=== PATIENT | male | born 2000 ===

== ENCOUNTER 2021-11-11 20:52 | Emergency (ER) | payer SELFPAY ==
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
[2021-11-11 23:06] LABS: Basophils # (Auto) 0.1 K/mm3 (0.0-0.1); Basophils % (Auto) 0.5 % (0.0-1.8); Eosinophils % (Auto) 0.2 % (0.0-4.3); Hematocrit 46.9 % (35.5-45.6); Hemoglobin 16.4 gm/dl (11.8-15.2); Lymphocytes # (Auto) 2.3 K/mm3 (1.2-5.4); Lymphocytes % (Auto) 20.3 % (13.4-35.0); Mean Corpuscular HGB Conc 35 % (32-34); Mean Corpuscular Volume 90 fl (84-94); Monocytes # (Auto) 0.8 K/mm3 (0.0-0.8); Monocytes % (Auto) 7.2 % (0.0-7.3); Platelet Count 269 K/mm3 (140-440); Red Blood Count 5.19 M/mm3 (3.65-5.03); Red Cell Distribution Width 12.9 % (13.2-15.2)
--- NOTE | 2021-11-11 23:13 | Cat Scan Report ---
CT HEAD WITHOUT CONTRAST INDICATION / CLINICAL INFORMATION: head injury r/o ich. TECHNIQUE: CT head was performed without administration of intravenous contrast. All CT scans at this location are performed using CT dose reduction for ALARA by means of automated exposure control. COMPARISON: None available. FINDINGS: CEREBRAL HEMISPHERES: There is no evidence of large territorial infarction or significant abnormality of coleman-white matter differentiation. Ventricles within normal limits. No midline shift. Basal ciste rns patent. HEMORRHAGE: None. CEREBELLUM / BRAINSTEM: No significant abnormality. ORBITS: Left globe enucleated. Right orbit unremarkable. SOFT TISSUES: No significant abnormality. SKULL: No significant abnormality. PARANASAL SINUSES / MASTOID AIR CELLS: Normal as visualized. ADDITIONAL FINDINGS: None. IMPRESSION: 1. No acute intracranial abnormality. Signer Name: Jairon Crocker II, MD Signed: 11/11/2021 11:08 PM Workstation Name: [id number]
[2021-11-11 23:20] LABS: Alanine Aminotransferase 18 units/L (7-56); Albumin 4.9 g/dL (3.9-5); BUN/Creatinine Ratio 6; Blood Urea Nitrogen 5 mg/dL (9-20); Calcium 9.9 mg/dL (8.4-10.2); Hemolysis Index 9
[2021-11-12 00:13] LABS: Color,Urine Yellow (Yellow)
[2021-11-12 00:14] LABS: Bilirubin,Urine Negative (Negative); Blood,Urine Negative (Negative); PH,Urine 7.5 (5.0-7.0); Protein,Urine <30 mg dL mg/dL (Negative)
[2021-11-12 00:15] LABS: Urobilinogen,Urine 0.2 mg/dL (<2.0)
[2021-11-12 00:19] LABS: Granular Casts,Urine 16 /LPF; Mucus,Urine 2+ /HPF; WBC,Urine < 1.0 /HPF (0.0-6.0)
[2021-11-12 00:23] LABS: Amphetamine Screen,Urine PRESUMPTIVE NEGATIVE; Benzodiazepines Screen,Urine PRESUMPTIVE POSITIVE; Cannabinoid Screen,Urine PRESUMPTIVE POSITIVE; Cocaine Screen,Urine PRESUMPTIVE NEGATIVE; Methadone Screen,Urine PRESUMPTIVE NEGATIVE; Opiate Screen,Urine PRESUMPTIVE POSITIVE
[2021-11-12 09:39] LABS: Hematocrit 47.3 % (35.5-45.6); Hemoglobin 15.9 gm/dl (11.8-15.2); Mean Corpuscular HGB Conc 34 % (32-34); Mean Corpuscular Volume 92 fl (84-94); Platelet Count 248 K/mm3 (140-440); Red Blood Count 5.16 M/mm3 (3.65-5.03); Red Cell Distribution Width 13.1 % (13.2-15.2)
--- NOTE | 2021-11-12 14:19 | Consultation ---
History of Present Illness - Reason for Consult Consult date: 11/11/21 Reason for consult: MHE - History of Present Psychiatric Illness HPI 21 year old male was seen today in the ER. Patient states that he was brought to the hospital because he had a seizure and [facility] " didn't handle seizure safely or professionally". Patient has a past Psychiatric dx of Bipolar,and Schizophrenia,substance abuse. Patient denies any SI/HI/AVH at this time. Psych will sign off at this time and rescind 1013. Patient can be discharged when medically cleared. PAST PSYCHIATRIC HISTORY: Diagnoses: Bipolar, Schizophrenia Suicide attempts or Self-harm behavior: Yes Prior psychiatric hospitalizations: Yes Substance Abuse history:Yes, cannabis Previous psychiatric medications tried: Yes Outpatient treatment: PAST MEDICAL HISTORY: Family Psychiatric History None reported or documented SOCIAL HISTORY Marital Status: Single Living Arrangements: With parents Employment Status: Unemployed Access to guns/weapons: Denies Education: Some College History of Abuse: Denies Legal History: REVIEW OF SYSTEMS Constitutional: Negative for weight loss ENT: Negative for stridor Respiratory: Negative for cough or hemoptysis All other systems reviewed and are negative MENTAL STATUS General Appearance and Behavior: age appropriate, good eye contact, cooperative with questioning and polite Cooperation: Cooperative Psychomotor Behavior: within normal limits Mood: ok Affect and affective range: Congruent with stated mood Thought Process: Fluent/Logical and Goal-directed Thought Content: Within reality Speech: Normal volume and Regular rate and rhythm Intellectual Functioning Average Suicidal Ideation: Denies SI Homicidal Ideation: Denies HI Impulse Control: intact Insight and Judgment: Poor Memory: Normal Attention: Normal Orientation: alert and oriented RECOMMENDATIONS MEDICAL: Per primary team DELIRIUM PRECAUTIONS: Please re-orient patient frequently, keep lights on during the day, and minimize benzodiazepines and opiates as these medications could worsen patient's confusion. FLEECE TIER: Defer to primary team DISPOSITION: Per primary team, no indication for acute inpatient psychiatric hospitalization at this time. LEGAL STATUS: DC 1013 FOLLOW-UP: Will sign off Medications and Allergies Allergies Allergy/AdvReac Type Severity Reaction Status Date / Time No Known Allergies Allergy Unverified 11/11/21 21:17 Mental Status Exam - Vital signs Last Vital Signs Temp 98.9 F 11/12/21 06:23 Pulse 56 L 11/12/21 06:23 Resp 20 11/12/21 06:23 BP 124/65 11/12/21 06:23 Pulse Ox 99 11/12/21 06:23 Results Result Diagrams: 11/12/21 08:41 11/11/21 22:44 Abnormal lab results 11/11/21 11/11/21 11/11/21 Range/Units 22:44 22:44 22:44 WBC 11.4 H (4.5-11.0) K/mm3 RBC 5.19 H (3.65-5.03) M/mm3 Hgb 16.4 H (11.8-15.2) gm/dl Hct 46.9 H (35.5-45.6) % MCHC 35 H (32-34) % RDW 12.9 L (13.2-15.2) % Seg Neutrophils % 71.8 H (40.0-70.0) % Seg Neutrophils # 8.2 H (1.8-7.7) K/mm3 BUN 5 L (9-20) mg/dL Urine pH (5.0-7.0) Salicylates < 0.3 L (2.8-20.0) mg/dL Acetaminophen (10.0-30.0) ug/mL 11/11/21 11/12/21 11/12/21 Range/Units 22:44 00:04 08:41 WBC (4.5-11.0) K/mm3 RBC 5.16 H (3.65-5.03) M/mm3 Hgb 15.9 H (11.8-15.2) gm/dl Hct 47.3 H (35.5-45.6) % MCHC (32-34) % RDW 13.1 L (13.2-15.2) % Seg Neutrophils % (40.0-70.0) % Seg Neutrophils # (1.8-7.7) K/mm3 BUN (9-20) mg/dL Urine pH 7.5 H (5.0-7.0) Salicylates (2.8-20.0) mg/dL Acetaminophen 5.0 L (10.0-30.0) ug/mL All other labs normal.
[2021-11-12] MEDS ORDERED: diphenhydrAMINE 50 MG/ML VIAL ONE (14:27)
[2021-11-12] MEDS ORDERED: HALOPERIDOL LACTATE 5 MG/1 ML INJ ONE (14:27)
[2021-11-12] MEDS ORDERED: diphenhydrAMINE 50 MG/ML VIAL IV ONE (14:28)
[2021-11-12] MEDS ORDERED: ZIPRASIDONE MESYLATE 20 MG VIAL IM ONE ×2 (14:28→14:29)
--- NOTE | 2021-11-12 22:23 | Emergency Department Report ---
Blank Doc - Documentation Documentation: 21-year-old male with history of pseudoseizures remains in the emergency depar tme on a 1013. There have been no acute issues during my shift, today. Patient is awaiting COVID-19 results for clearance and to be in inpatient psychiatric facility. Patient has been evaluated by mental health film developer.
[2021-11-13] MEDS ORDERED: ZIPRASIDONE MESYLATE 20 MG VIAL IM ONE ×2 (11:56)
--- NOTE | 2021-11-13 12:46 | Consultation ---
History of Present Illness - Reason for Consult Consult date: 11/13/21 Reason for consult: MHE - History of Present Psychiatric Illness HPI 21 year old male was seen today in the ER. Unable to communicate with patient at this time. Psych will follow patient at this time. Inpatient will be recommended at this time. PAST PSYCHIATRIC HISTORY: Diagnoses: Bipolar, Schizophrenia Suicide attempts or Self-harm behavior: Yes Prior psychiatric hospitalizations: Yes Substance Abuse history:Yes, cannabis Previous psychiatric medications tried: Yes Outpatient treatment: PAST MEDICAL HISTORY: Family Psychiatric History None reported or documented SOCIAL HISTORY Marital Status: Single Living Arrangements: With parents Employment Status: Unemployed Access to guns/weapons: Denies Education: Some College History of Abuse: Denies Legal History: REVIEW OF SYSTEMS Constitutional: Negative for weight loss ENT: Negative for stridor Respiratory: Negative for cough or hemoptysis All other systems reviewed and are negative MENTAL STATUS General Appearance and Behavior: age appropriate, good eye contact, cooperative with questioning and polite Cooperation: Cooperative Psychomotor Behavior: within normal limits Mood: ok Affect and affective range: Congruent with stated mood Thought Process: Fluent/Logical and Goal-directed Thought Content: Within reality Speech: Normal volume and Regular rate and rhythm Intellectual Functioning Average Suicidal Ideation: Denies SI Homicidal Ideation: Denies HI Impulse Control: intact Insight and Judgment: Poor Memory: Normal Attention: Normal Orientation: alert and oriented RECOMMENDATIONS MEDICAL: Per primary team DELIRIUM PRECAUTIONS: Please re-orient patient frequently, keep lights on during the day, and minimize benzodiazepines and opiates as these medications could worsen patient's confusion. MARKETING PROGRAMS SPECIALIST: Defer to primary team DISPOSITION: Per primary team, no indication for acute inpatient psychiatric hospitalization at this time. LEGAL STATUS: 1013 FOLLOW-UP: Will follow Medications and Allergies Allergies Allergy/AdvReac Type Severity Reaction Status Date / Time No Known Allergies Allergy Verified 11/12/21 14:32 Mental Status Exam - Vital signs Last Vital Signs Temp 98.6 F 11/13/21 08:00 Pulse 71 11/13/21 08:00 Resp 14 11/13/21 08:00 BP 121/79 11/13/21 08:00 Pulse Ox 96 11/13/21 08:00 Results Result Diagrams: 11/12/21 08:41 11/11/21 22:44 All other labs normal.
[2021-11-13] MEDS: traZODone 50 MG TAB PO SCH ×2 (20:28→23:13)
[2021-11-13] MEDS: ZIPRASIDONE MESYLATE 20 MG VIAL IM PRN (23:13)
--- NOTE | 2021-11-14 15:38 | Progress Note ---
Subjective - Reason for Consult Reason for consult: MHE - Chief Complaint Chief complaint: Patient seen today. Patient states that he is "doing better than yesterday" and that he is in "Mental Pain" and states tat he is hearing voices to " Hurt myself". Patient states he only hurts himself when he thinks he is doing something wrong like " Trying to break my bones and fingers". Patient waiting for placement at this time. PAST PSYCHIATRIC HISTORY: Diagnoses: Bipolar, Schizophrenia Suicide attempts or Self-harm behavior: Yes Prior psychiatric hospitalizations: Yes Substance Abuse history:Yes, cannabis Previous psychiatric medications tried: Yes Outpatient treatment: PAST MEDICAL HISTORY: Family Psychiatric History None reported or documented SOCIAL HISTORY Marital Status: Single Living Arrangements: With parents Employment Status: Unemployed Access to guns/weapons: Denies Education: Some College History of Abuse: Denies Legal History: REVIEW OF SYSTEMS Constitutional: Negative for weight loss ENT: Negative for stridor Respiratory: Negative for cough or hemoptysis All other systems reviewed and are negative MENTAL STATUS General Appearance and Behavior: age appropriate, good eye contact, cooperative with questioning and polite Cooperation: Cooperative Psychomotor Behavior: within normal limits Mood: ok Affect and affective range: Congruent with stated mood Thought Process: Fluent/Logical and Goal-directed Thought Content: Within reality Speech: Normal volume and Regular rate and rhythm Intellectual Functioning Average Suicidal Ideation: Denies SI Homicidal Ideation: Denies HI Impulse Control: intact Insight and Judgment: Poor Memory: Normal Attention: Normal Orientation: alert and oriented RECOMMENDATIONS MEDICAL: Per primary team DELIRIUM PRECAUTIONS: Please re-orient patient frequently, keep lights on during the day, and minimize benzodiazepines and opiates as these medications could worsen patient's confusion. OPTOMETRIST PRESIDENT/PRACTICE OWNER: Defer to primary team DISPOSITION: Per primary team, no indication for acute inpatient psychiatric hospitalization at this time. LEGAL STATUS: 1013 FOLLOW-UP: Will follow Medications and Allergies Mental Status Exam - Vital signs Last Vital Signs Temp 98.5 F 11/14/21 09:57 Pulse 80 11/14/21 09:57 Resp 18 11/14/21 09:57 BP 137/80 11/14/21 09:57 Pulse Ox 96 11/14/21 09:57
--- NOTE | 2021-11-14 15:53 | Event Note ---
Date: 11/14/21 Chart reviewed. Patient reassessed by me. Vital signs stable. Patient observed ambulating in psychiatric hold area, awaiting to have shower. He denies any complaints. He is calm and cooperative. We will continue to wait for final disposition by psychiatry consult
[2021-11-14] MEDS ORDERED: MIDAZOLAM 2 MG/2 ML INJ ONE (16:41)
[2021-11-14] MEDS ORDERED: ZIPRASIDONE MESYLATE 20 MG VIAL IM STA (16:57)
[2021-11-14] MEDS: ZIPRASIDONE MESYLATE 20 MG VIAL IM PRN (17:00)
[2021-11-14] MEDS ORDERED: HALOPERIDOL LACTATE 5 MG/1 ML INJ IM ONE (17:11)
[2021-11-14] MEDS ORDERED: diphenhydrAMINE 50 MG/ML VIAL IV ONE (17:11)
[2021-11-14] MEDS ORDERED: HALOPERIDOL LACTATE 5 MG/1 ML INJ ONE (17:11)
[2021-11-14] MEDS ORDERED: diphenhydrAMINE 50 MG/ML VIAL ONE (17:12)
[2021-11-15] MEDS: traZODone 50 MG TAB PO SCH ×2 (05:25→21:57)
--- NOTE | 2021-11-15 11:02 | Progress Note ---
Subjective - Reason for Consult Consult date: 11/15/21 Reason for consult: agitation - Chief Complaint Chief complaint: The patient was seen today. He is slow to respond at times, and have to be asked some questions more than once. The patient says he has suicidal thoughts at times. He says he has a lot of bad thoughts. He says "that's how I lost my left eye." He says "I pulled it out of the socket with my hand." He says he's been off his meds for about 6 months. The patient denies hallucinations. He says he takes depakote 500 twice daily and abilify daily. Will recommend acute psychiatric inpatient treatment and stabilize on medications. Due to impulsivity, past self harm history and being off medications, the patient is at an increased risk of self injury if discharged. REVIEW OF SYSTEMS Constitutional: Negative for weight loss ENT: Negative for stridor Respiratory: Negative for cough or hemoptysis All other systems reviewed and are negative MENTAL STATUS General Appearance and Behavior: age appropriate, good eye contact, slow to respond Cooperation: Cooperative Psychomotor Behavior: within normal limits Mood: ok Affect and affective range: Congruent with stated mood Thought Process: circumstantial Thought Content: illogical Speech: Normal volume and Regular rate and rhythm Suicidal Ideation: Yes Homicidal Ideation: Denies HI Impulse Control: poor Insight and Judgment: Poor Memory: Normal Attention: Normal Orientation: alert and oriented Assessment Bipolar Disorder RECOMMENDATIONS [address] 500mg po BID Start Abilify 20mg po daily MEDICAL: Per primary team DELIRIUM PRECAUTIONS: Please re-orient patient frequently, keep lights on during the day, and minimize benzodiazepines and opiates as these medications could worsen patient's confusion. MOLD ENGRAVER: Defer to primary team DISPOSITION: Recommend acute psychiatric inpatient treatment FOLLOW-UP: Will follow Case staffed with Dr. Flowers Mental Status Exam - Vital signs Last Vital Signs Temp 98.4 F 11/15/21 02:34 Pulse 91 H 11/15/21 02:34 Resp 18 11/15/21 02:34 BP 145/97 11/15/21 02:34 Pulse Ox 99 11/15/21 02:34
[2021-11-15] MEDS ORDERED: ARIPiprazole 10 MG TAB PO SCH (12:00)
[2021-11-15] MEDS: DIVALPROEX DR 500 MG TAB PO SCH ×2 (12:11→21:57)
--- NOTE | 2021-11-15 18:58 | Emergency Department Report ---
Blank Doc - Documentation Documentation: Chart review 21-year-old male currently on 1013 (order placed in [employer]). Tolerating p.o. medications. Vital signs normal
[2021-11-16] MEDS ORDERED: ZIPRASIDONE MESYLATE 20 MG VIAL IM ONE (09:06)
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
[2021-11-16] MEDS: ARIPiprazole 15 MG TAB PO SCH (11:27)
[2021-11-16] MEDS: DIVALPROEX DR 500 MG TAB PO SCH ×3 (11:27→22:14)
[2021-11-16] MEDS: clonazePAM 0.5 MG TAB PO SCH ×3 (11:28→22:14)
--- NOTE | 2021-11-16 14:50 | Event Note ---
Date: 11/16/21 The patient was evaluated in the emergency department for symptoms described in the history of present illness. He/she was evaluated in the context of the global COVID-19 pandemic, which necessitated consideration that the patient might be at risk for infection with the virus that causes COVID-19. Institutional protocols and algorithms that pertain to the evaluation of patients at risk for COVID-19 are in a state of rapid change based on information released by regulatory bodies including the CDC and federal and state organizations. These policies and algorithms were followed during the patient's care in the emergency department. Please note that these policies, procedures and recommendations changed on a rapid basis. Laboratory studies, vital signs, nursing documentation, ER documentation, and psychiatric documentation are reviewed and appreciated. Patient is awake and protecting his airway The patient is awake and ambulating and appears to be anxious The patient was deemed medically suitable for psychiatric disposition and placement during his initial ER evaluation. The patient continues to remain medically suitable for psychiatric placement and disposition. He is currently pending psychiatric placement. Vital Signs 11/11/21 11/12/21 11/12/21 22:35 00:05 03:49 Temperature 98.1 F 98.6 F Pulse Rate 67 72 Respiratory 20 20 Rate Blood Pressure 120/81 132/72 [Left] Blood Pressure [Right] O2 Sat by Pulse 100 96 99 Oximetry 11/12/21 11/13/21 11/13/21 06:23 08:00 12:32 Temperature 98.9 F 98.6 F Pulse Rate 56 L 71 Respiratory 20 14 Rate Blood Pressure 124/65 121/79 [Left] Blood Pressure [Right] O2 Sat by Pulse 99 96 97 Oximetry 11/13/21 11/13/21 11/13/21 18:18 20:46 21:13 Temperature 97.6 F 98.9 F Pulse Rate 95 H 99 H Respiratory 16 16 18 Rate Blood Pressure 142/87 139/79 [Left] Blood Pressure [Right] O2 Sat by Pulse 98 96 98 Oximetry 11/14/21 11/14/21 11/14/21 08:47 09:57 15:43 Temperature 98.5 F 98.9 F Pulse Rate 80 95 H Respiratory 18 18 Rate Blood Pressure 137/80 153/92 [Left] Blood Pressure [Right] O2 Sat by Pulse 98 96 99 Oximetry 07/28/22 07/29/22 07/29/22 21:37 02:34 14:22 Temperature 98.4 F 98.4 F 98.4 F Pulse Rate 109 H 91 H 78 Respiratory 18 18 18 Rate Blood Pressure [Left] Blood Pressure 134/97 145/97 151/97 [Right] O2 Sat by Pulse 100 99 100 Oximetry 11/15/21 11/15/21 11/16/21 19:21 22:11 11:21 Temperature 97.4 F L Pulse Rate 88 Respiratory 17 Rate Blood Pressure [Left] Blood Pressure 166/99 [Right] O2 Sat by Pulse 95 99 96 Oximetry 11/16/21 13:00 Temperature 98.1 F Pulse Rate 83 Respiratory 18 Rate Blood Pressure [Left] Blood Pressure 153/89 [Right] O2 Sat by Pulse 96 Oximetry Lab Results 11/11/21 11/11/21 11/11/21 Range/Units 22:44 22:44 22:44 WBC 11.4 H (4.5-11.0) K/mm3 RBC 5.19 H (3.65-5.03) M/mm3 Hgb 16.4 H (11.8-15.2) gm/dl Hct 46.9 H (35.5-45.6) % MCV 90 (84-94) fl MCH 32 (28-32) pg MCHC 35 H (32-34) % RDW 12.9 L (13.2-15.2) % Plt Count 269 (140-440) K/mm3 Lymph % (Auto) 20.3 (13.4-35.0) % [place] % (Auto) 7.2 (0.0-7.3) % Eos % (Auto) 0.2 (0.0-4.3) % Baso % (Auto) 0.5 (0.0-1.8) % Lymph # (Auto) 2.3 (1.2-5.4) K/mm3 [place] # (Auto) 0.8 (0.0-0.8) K/mm3 Eos # (Auto) 0.0 (0.0-0.4) K/mm3 Baso # (Auto) 0.1 (0.0-0.1) K/mm3 Seg Neutrophils % 71.8 H (40.0-70.0) % Seg Neutrophils # 8.2 H (1.8-7.7) K/mm3 Sodium 141 (137-145) mmol/L Potassium 4.0 (3.6-5.0) mmol/L Chloride 102.1 (98-107) mmol/L Carbon Dioxide 24 (22-30) mmol/L Anion Gap 19 mmol/L BUN 5 L (9-20) mg/dL Creatinine 0.8 (0.8-1.3) mg/dL Estimated GFR > 60 ml/min BUN/Creatinine Ratio 6 % Glucose 94 (75-100) mg/dL Calcium 9.9 (8.4-10.2) mg/dL Total Bilirubin 1.10 (0.1-1.2) mg/dL AST 28 (5-40) units/L ALT 18 (7-56) units/L Alkaline Phosphatase 93 (35-129) units/L Total Protein 7.9 (6.3-8.2) g/dL Albumin 4.9 (3.9-5) g/dL Albumin/Globulin Ratio 1.6 % Urine Color (Yellow) Urine Turbidity (Clear) Urine pH (5.0-7.0) Ur Specific [place] (1.003-1.030) Urine Protein (Negative) mg/dL Urine Glucose (UA) (Negative) mg/dL Urine Ketones (Negative) mg/dL Urine Blood (Negative) Urine Nitrite (Negative) Urine Bilirubin (Negative) Urine Urobilinogen (<2.0) mg/dL Ur Leukocyte Esterase (Negative) Urine WBC (Auto) (0.0-6.0) /HPF Urine RBC (Auto) (0.0-6.0) /HPF U Epithel Cells (Auto) (0-13.0) /HPF Granular Casts /LPF Urine Mucus /HPF Salicylates < 0.3 L (2.8-20.0) mg/dL Urine Opiates Screen Urine Methadone Screen Acetaminophen (10.0-30.0) ug/mL Ur Barbiturates Screen Ur Phencyclidine Scrn Ur Amphetamines Screen U Benzodiazepines Scrn Urine Cocaine Screen U Marijuana (THC) Screen Drugs of Abuse Note SARS-CoV-2 (PCR) (Negative) 11/11/21 11/12/21 11/12/21 Range/Units 22:44 00:04 00:04 WBC (4.5-11.0) K/mm3 RBC (3.65-5.03) M/mm3 Hgb (11.8-15.2) gm/dl Hct (35.5-45.6) % MCV (84-94) fl MCH (28-32) pg MCHC (32-34) % RDW (13.2-15.2) % Plt Count (140-440) K/mm3 Lymph % (Auto) (13.4-35.0) % [place] % (Auto) (0.0-7.3) % Eos % (Auto) (0.0-4.3) % Baso % (Auto) (0.0-1.8) % Lymph # (Auto) (1.2-5.4) K/mm3 [place] # (Auto) (0.0-0.8) K/mm3 Eos # (Auto) (0.0-0.4) K/mm3 Baso # (Auto) (0.0-0.1) K/mm3 Seg Neutrophils % (40.0-70.0) % Seg Neutrophils # (1.8-7.7) K/mm3 Sodium (137-145) mmol/L Potassium (3.6-5.0) mmol/L Chloride (98-107) mmol/L Carbon Dioxide (22-30) mmol/L Anion Gap mmol/L BUN (9-20) mg/dL Creatinine (0.8-1.3) mg/dL Estimated GFR ml/min BUN/Creatinine Ratio % Glucose (75-100) mg/dL Calcium (8.4-10.2) mg/dL Total Bilirubin (0.1-1.2) mg/dL AST (5-40) units/L ALT (7-56) units/L Alkaline Phosphatase (35-129) units/L Total Protein (6.3-8.2) g/dL Albumin (3.9-5) g/dL Albumin/Globulin Ratio % Urine Color Yellow (Yellow) Urine Turbidity Clear (Clear) Urine pH 7.5 H (5.0-7.0) Ur Specific [place] 1.015 (1.003-1.030) Urine Protein <30 mg dl (Negative) mg/dL Urine Glucose (UA) Negative (Negative) mg/dL Urine Ketones 160 (Negative) mg/dL Urine Blood Negative (Negative) Urine Nitrite Negative (Negative) Urine Bilirubin Negative (Negative) Urine Urobilinogen 0.2 (<2.0) mg/dL Ur Leukocyte Esterase Negative (Negative) Urine WBC (Auto) < 1.0 (0.0-6.0) /HPF Urine RBC (Auto) 1.0 (0.0-6.0) /HPF U Epithel Cells (Auto) < 1.0 (0-13.0) /HPF Granular Casts 16 /LPF Urine Mucus 2+ /HPF Salicylates (2.8-20.0) mg/dL Urine Opiates Screen Presumptive positive Urine Methadone Screen Presumptive negative Acetaminophen 5.0 L (10.0-30.0) ug/mL Ur Barbiturates Screen Presumptive negative Ur Phencyclidine Scrn Presumptive negative Ur Amphetamines Screen Presumptive negative U Benzodiazepines Scrn Presumptive positive Urine Cocaine Screen Presumptive negative U Marijuana (THC) Screen Presumptive positive Drugs of Abuse Note Disclamer SARS-CoV-2 (PCR) (Negative) 11/12/21 11/14/21 Range/Units 08:41 08:10 WBC 6.3 (4.5-11.0) K/mm3 RBC 5.16 H (3.65-5.03) M/mm3 Hgb 15.9 H (11.8-15.2) gm/dl Hct 47.3 H (35.5-45.6) % MCV 92 (84-94) fl MCH 31 (28-32) pg MCHC 34 (32-34) % RDW 13.1 L (13.2-15.2) % Plt Count 248 (140-440) K/mm3 Lymph % (Auto) (13.4-35.0) % [place] % (Auto) (0.0-7.3) % Eos % (Auto) (0.0-4.3) % Baso % (Auto) (0.0-1.8) % Lymph # (Auto) (1.2-5.4) K/mm3 [place] # (Auto) (0.0-0.8) K/mm3 Eos # (Auto) (0.0-0.4) K/mm3 Baso # (Auto) (0.0-0.1) K/mm3 Seg Neutrophils % (40.0-70.0) % Seg Neutrophils # (1.8-7.7) K/mm3 Sodium (137-145) mmol/L Potassium (3.6-5.0) mmol/L Chloride (98-107) mmol/L Carbon Dioxide (22-30) mmol/L Anion Gap mmol/L BUN (9-20) mg/dL Creatinine (0.8-1.3) mg/dL Estimated GFR ml/min BUN/Creatinine Ratio % Glucose (75-100) mg/dL Calcium (8.4-10.2) mg/dL Total Bilirubin (0.1-1.2) mg/dL AST (5-40) units/L ALT (7-56) units/L Alkaline Phosphatase (35-129) units/L Total Protein (6.3-8.2) g/dL Albumin (3.9-5) g/dL Albumin/Globulin Ratio % Urine Color (Yellow) Urine Turbidity (Clear) Urine pH (5.0-7.0) Ur Specific [place] (1.003-1.030) Urine Protein (Negative) mg/dL Urine Glucose (UA) (Negative) mg/dL Urine Ketones (Negative) mg/dL Urine Blood (Negative) Urine Nitrite (Negative) Urine Bilirubin (Negative) Urine Urobilinogen (<2.0) mg/dL Ur Leukocyte Esterase (Negative) Urine WBC (Auto) (0.0-6.0) /HPF Urine RBC (Auto) (0.0-6.0) /HPF U Epithel Cells (Auto) (0-13.0) /HPF Granular Casts /LPF Urine Mucus /HPF Salicylates (2.8-20.0) mg/dL Urine Opiates Screen Urine Methadone Screen Acetaminophen (10.0-30.0) ug/mL Ur Barbiturates Screen Ur Phencyclidine Scrn Ur Amphetamines Screen U Benzodiazepines Scrn Urine Cocaine Screen U Marijuana (THC) Screen Drugs of Abuse Note SARS-CoV-2 (PCR) Negative (Negative)
[2021-11-16] MEDS: traZODone 50 MG TAB PO SCH ×2 (22:02→22:14)
[2021-11-17] MEDS: ARIPiprazole 15 MG TAB PO SCH (09:58)
[2021-11-17] MEDS: clonazePAM 0.5 MG TAB PO SCH ×2 (09:58→22:13)
[2021-11-17] MEDS: DIVALPROEX DR 500 MG TAB PO SCH ×2 (09:58→22:12)
--- NOTE | 2021-11-17 10:27 | Progress Note ---
Subjective - Reason for Consult Consult date: 11/17/21 Reason for consult: psychosis - Chief Complaint Chief complaint: The patient was seen today. He is slow to respond and endorse depression. His affect is flat. He is at times staring away. He is asking to speak to a therapist. He says he needs someone to talk to. He then says he has a lot of financial issues. I off him case management services. The patient denies hallucinations or SI/HI at present. He is telling me that he doesn't need any medication. Will continue to treat and recommend acute psychiatric inpatient treatment. This patient's mental health would deteriorate if discharged. REVIEW OF SYSTEMS Constitutional: Negative for weight loss ENT: Negative for stridor Respiratory: Negative for cough or hemoptysis All other systems reviewed and are negative MENTAL STATUS General Appearance and Behavior: age appropriate, bizarre, staring intensely, anxious, pacing Cooperation: Cooperative Psychomotor Behavior: within normal limits Mood: Affect and affective range: Congruent with stated mood Thought Process: circumstantial Thought Content: illogical, hallucinations, flashbacks Speech: Normal volume and Regular rate and rhythm Suicidal Ideation: Denies Homicidal Ideation: Denies HI Impulse Control: poor Insight and Judgment: Poor Memory: Poor Attention: Distracted Orientation: alert and oriented Assessment Bipolar Disorder RECOMMENDATIONS [address] 500mg po BID Abilify 30mg po daily Geodon 20mg IM q4h prn agitation Klonopin 0.5mg po BID x 3 days MEDICAL: Per primary team DELIRIUM PRECAUTIONS: Please re-orient patient frequently, keep lights on during the day, and minimize benzodiazepines and opiates as these medications could worsen patient's confusion. 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 Flowers Mental Status Exam - Vital signs Last Vital Signs Temp 98.0 F 11/16/21 20:25 Pulse 105 H 11/16/21 20:25 Resp 16 11/16/21 20:25 BP 147/94 11/16/21 20:25 Pulse Ox 98 11/16/21 20:25
--- NOTE | 2021-11-17 16:45 | Event Note ---
Date: 11/17/21 The patient was evaluated in the emergency department for symptoms described in the history of present illness. He/she was evaluated in the context of the global COVID-19 pandemic, which necessitated consideration that the patient might be at risk for infection with the virus that causes COVID-19. Institutional protocols and algorithms that pertain to the evaluation of patients at risk for COVID-19 are in a state of rapid change based on information released by regulatory bodies including the CDC and federal and state organizations. These policies and algorithms were followed during the patient's care in the emergency department. Please note that these policies, procedures and recommendations changed on a rapid basis. Laboratory studies, vital signs, nursing documentation, ER documentation, and psychiatric documentation are reviewed and appreciated. Nursing team reports that the patient masturbated/self stimulated in the room to completion The patient is awake and ambulating and continues to appear psychotic The patient was deemed medically suitable for psychiatric disposition and placement during his initial ER evaluation. The patient continues to remain medically suitable for psychiatric placement and disposition. He is currently pending psychiatric placement. Vital Signs 11/11/21 11/12/21 11/12/21 22:35 00:05 03:49 Temperature 98.1 F 98.6 F Pulse Rate 67 72 Respiratory 20 20 Rate Blood Pressure 120/81 132/72 [Left] Blood Pressure [Right] O2 Sat by Pulse 100 96 99 Oximetry 11/12/21 11/13/21 11/13/21 06:23 08:00 12:32 Temperature 98.9 F 98.6 F Pulse Rate 56 L 71 Respiratory 20 14 Rate Blood Pressure 124/65 121/79 [Left] Blood Pressure [Right] O2 Sat by Pulse 99 96 97 Oximetry 11/13/21 11/13/21 11/13/21 18:18 20:46 21:13 Temperature 97.6 F 98.9 F Pulse Rate 95 H 99 H Respiratory 16 16 18 Rate Blood Pressure 142/87 139/79 [Left] Blood Pressure [Right] O2 Sat by Pulse 98 96 98 Oximetry 11/14/21 11/14/21 11/14/21 08:47 09:57 15:43 Temperature 98.5 F 98.9 F Pulse Rate 80 95 H Respiratory 18 18 Rate Blood Pressure 137/80 153/92 [Left] Blood Pressure [Right] O2 Sat by Pulse 98 96 99 Oximetry 11/14/21 11/15/2122 21:37 02:34 14:22 Temperature 98.4 F 98.4 F 98.4 F Pulse Rate 109 H 91 H 78 Respiratory 18 18 18 Rate Blood Pressure [Left] Blood Pressure 134/97 145/97 151/97 [Right] O2 Sat by Pulse 100 99 100 Oximetry 11/15/21 11/15/21 11/16/21 19:21 22:11 11:21 Temperature 97.4 F L Pulse Rate 88 Respiratory 17 Rate Blood Pressure [Left] Blood Pressure 166/99 [Right] O2 Sat by Pulse 95 99 96 Oximetry 11/16/21 11/16/21 11/17/21 13:00 20:25 16:00 Temperature 98.1 F 98.0 F 98.6 F Pulse Rate 83 105 H 103 H Respiratory 18 16 18 Rate Blood Pressure [Left] Blood Pressure 153/89 147/94 168/97 [Right] O2 Sat by Pulse 96 98 96 Oximetry 11/17/21 16:01 Temperature Pulse Rate Respiratory Rate Blood Pressure [Left] Blood Pressure [Right] O2 Sat by Pulse 96 Oximetry
[2021-11-17] MEDS: ZIPRASIDONE MESYLATE 20 MG VIAL IM PRN (21:42)
[2021-11-17] MEDS: traZODone 50 MG TAB PO SCH (22:12)
[2021-11-18] MEDS: ZIPRASIDONE MESYLATE 20 MG VIAL IM PRN (09:05)
--- NOTE | 2021-11-18 10:07 | Progress Note ---
Subjective - Reason for Consult Consult date: 11/18/21 Reason for consult: psychosis - Chief Complaint Chief complaint: The patient was seen today. He is in seclusion. His room has food over the floor. Food is also smeared in the window. The patient is laying on the floor talking to the wall. Will continue to treat and recommend acute psychiatric inpatient treatment. This patient's mental health would deteriorate if discharged. REVIEW OF SYSTEMS Constitutional: Negative for weight loss ENT: Negative for stridor Respiratory: Negative for cough or hemoptysis All other systems reviewed and are negative MENTAL STATUS General Appearance and Behavior: age appropriate, bizarre, staring intensely, anxious, pacing Cooperation: Cooperative Psychomotor Behavior: within normal limits Mood: Affect and affective range: Congruent with stated mood Thought Process: circumstantial Thought Content: illogical, hallucinations, flashbacks Speech: Normal volume and Regular rate and rhythm Suicidal Ideation: Denies Homicidal Ideation: Denies HI Impulse Control: poor Insight and Judgment: Poor Memory: Poor Attention: Distracted Orientation: alert and oriented Assessment Bipolar Disorder RECOMMENDATIONS 1013 Give dose of Geodon 20mg x 1 now. Lorazepam 2mg IM q4h prn agitation Increase Depakote DR 500mg po TID Abilify 30mg po daily Geodon 20mg IM q4h prn agitation Klonopin 0.5mg po BID x 3 days MEDICAL: Per primary team DELIRIUM PRECAUTIONS: Please re-orient patient frequently, keep lights on during the day, and minimize benzodiazepines and opiates as these medications could worsen patient's confusion. PROCUREMENT CONSULTANT: Defer to primary team DISPOSITION: Recommend acute psychiatric inpatient treatment FOLLOW-UP: Will follow Case staffed with Dr. Flowers Mental Status Exam - Vital signs Last Vital Signs Temp 98.6 F 11/17/21 16:00 Pulse 103 H 11/17/21 16:00 Resp 18 11/17/21 16:00 BP 168/97 11/17/21 16:00 Pulse Ox 96 11/17/21 16:01
[2021-11-18] MEDS ORDERED: LORazepam 2 MG/ML VIAL IM PRN (11:00)
--- NOTE | 2021-11-18 11:29 | Event Note ---
Date: 11/18/21 vss , no distress, medically cleared , seen by psych recommend psych transfer
[2021-11-18] MEDS ORDERED: diphenhydrAMINE 50 MG/ML VIAL IM ONE (11:34)
[2021-11-18] MEDS ORDERED: HALOPERIDOL LACTATE 5 MG/1 ML INJ IM ONE (11:34)
[2021-11-18] MEDS: clonazePAM 0.5 MG TAB PO SCH (11:47)
[2021-11-18] MEDS: ARIPiprazole 15 MG TAB PO SCH (11:47)
[2021-11-18] MEDS ORDERED: ZIPRASIDONE MESYLATE 20 MG VIAL IM PRN (15:00)
[2021-11-18] MEDS: DIVALPROEX DR 500 MG TAB PO SCH ×2 (15:48→17:53)
[2021-11-19] MEDS: DIVALPROEX DR 500 MG TAB PO SCH ×3 (08:27→18:51)
[2021-11-19] MEDS: traZODone 50 MG TAB PO SCH (08:28)
[2021-11-19] MEDS: clonazePAM 0.5 MG TAB PO SCH (08:28)
[2021-11-19] MEDS: ARIPiprazole 15 MG TAB PO SCH (09:40)
--- NOTE | 2021-11-19 09:50 | Progress Note ---
Subjective - Reason for Consult Consult date: 11/19/21 Reason for consult: psychosis - Chief Complaint Chief complaint: The patient was seen today. He is in seclusion. His room has food over the floor. Food is also smeared in the window. The patient is laying on the floor talking to the wall. Will continue to treat and recommend acute psychiatric inpatient treatment. This patient's mental health would deteriorate if discharged. REVIEW OF SYSTEMS Constitutional: Negative for weight loss ENT: Negative for stridor Respiratory: Negative for cough or hemoptysis All other systems reviewed and are negative MENTAL STATUS General Appearance and Behavior: age appropriate, bizarre, staring intensely Cooperation: uncooperative Psychomotor Behavior: within normal limits Mood: Affect and affective range: flat Thought Process: disorganized Thought Content: illogical, hallucinations, flashbacks Speech: Suicidal Ideation: Homicidal Ideation: Impulse Control: poor Insight and Judgment: Poor Memory: Attention: Distracted Orientation: alert and oriented Assessment Bipolar Disorder RECOMMENDATIONS 1013 Valium 2mg IM q6h prn agitation x 24. Will review effectiveness in 24 hours. Please give IM antispychotic if the patient refuses oral antipsycotic d/c abilify Start Risperidone 1mg po BID Haldol 5mg IM q4h prn psychosis Benadryl 50mg I q4h prn agitaion Depakote DR 500mg po TID Ativan 1mg po BID x 4 days MEDICAL: Per primary team DELIRIUM PRECAUTIONS: Please re-orient patient frequently, keep lights on during the day, and minimize benzodiazepines and opiates as these medications could worsen patient's confusion. 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 Flowers Mental Status Exam - Vital signs Last Vital Signs Temp 98.6 F 11/17/21 16:00 Pulse 103 H 11/17/21 16:00 Resp 18 11/17/21 16:00 BP 168/97 11/17/21 16:00 Pulse Ox 96 11/18/21 12:42
[2021-11-19] MEDS ORDERED: diphenhydrAMINE 50 MG/ML VIAL IM PRN (10:30)
[2021-11-19] MEDS ORDERED: HALOPERIDOL LACTATE 5 MG/1 ML INJ IM PRN (10:30)
[2021-11-19] MEDS: risperiDONE 1 MG TAB PO SCH (10:39)
[2021-11-19] MEDS ORDERED: diazePAM 10 MG/2 ML SYRINGE IM PRN (10:46)
[2021-11-19] MEDS: LORazepam 1 MG TAB PO SCH (12:31)
[2021-11-19] MEDS ORDERED: MIRTAZAPINE 15 MG TAB PO SCH (22:00)
[2021-11-20] MEDS: DIVALPROEX DR 500 MG TAB PO SCH ×2 (07:45→14:02)
[2021-11-20] MEDS: LORazepam 1 MG TAB PO SCH ×2 (10:30→22:19)
[2021-11-20] MEDS: risperiDONE 1 MG TAB PO SCH ×2 (10:31→22:20)
--- NOTE | 2021-11-20 14:26 | Progress Note ---
Subjective - Reason for Consult Consult date: 11/20/21 Reason for consult: psychosis - Chief Complaint Chief complaint: The patient was seen today. He is in seclusion. He is responding to internal stimuli. But he does respond during the evaluation, today. He gives me a thumbs up for most questions. The patient give me a thumbs up when asking how he felt, and how he slept. When asking was he hallucinating, he just stares. He is smiling inappropriately. He then starts waving. He denies SI/HI. Will continue to treat and recommend acute psychiatric inpatient treatment. This patient's mental health would deteriorate if discharged. REVIEW OF SYSTEMS Constitutional: Negative for weight loss ENT: Negative for stridor Respiratory: Negative for cough or hemoptysis All other systems reviewed and are negative MENTAL STATUS General Appearance and Behavior: age appropriate, bizarre, staring intensely Cooperation: uncooperative Psychomotor Behavior: within normal limits Mood: okay Affect and affective range: smiling inappropriately Thought Process: disorganized Thought Content:: illogical, hallucinations Speech: not speaking Suicidal Ideation: Homicidal Ideation: Hallucinations: Auditory Impulse Control: poor Insight and Judgment: Poor Memory: Attention: Distracted Orientation: alert and oriented Assessment Bipolar Disorder RECOMMENDATIONS 1013 Valium 2mg IM q6h prn agitation x 24. Will review effectiveness in 24 hours. (The hospital does not have Lorazepam in stock) Please give IM antispychotic if the patient refuses oral antipsycotic Increase Risperidone 1.5mg po BID Haldol 5mg IM q4h prn psychosis Benadryl 50mg I q4h prn agitaion Depakote DR 500mg po TID Ativan 1mg po BID x 4 days MEDICAL: Per primary team DELIRIUM PRECAUTIONS: Please re-orient patient frequently, keep lights on during the day, and minimize benzodiazepines and opiates as these medications could worsen patient's confusion. 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 Flowers Mental Status Exam - Vital signs Last Vital Signs Temp 98.0 F 11/20/21 04:15 Pulse 70 11/20/21 08:13 Resp 20 11/20/21 08:13 BP 130/87 11/20/21 04:15 Pulse Ox 97 11/20/21 10:53
[2021-11-20] MEDS ORDERED: diazePAM 10 MG/2 ML SYRINGE IM PRN (15:00)
[2021-11-20] MEDS: traZODone 50 MG TAB PO SCH (22:21)
[2021-11-21] MEDS: DIVALPROEX DR 500 MG TAB PO SCH (07:43)
[2021-11-21] MEDS: LORazepam 1 MG TAB PO SCH (09:52)
[2021-11-21] MEDS: risperiDONE 1 MG TAB PO SCH (09:52)
--- NOTE | 2021-11-21 10:27 | Progress Note ---
Subjective - Reason for Consult Consult date: 11/21/21 Reason for consult: psychosis - Chief Complaint Chief complaint: The patient was seen today. He presents much better today. The patient verbalizes feeling much better. The patient is lucid with organized thoughts. He is conversational. He is calm, cooperative and pleasant. The patient denies SI/HI. He spoke of the importance of taking his meds. He asks if I think this is the right regimen for him. He expressed wanting therapy. The patient says he eventually wants to start work, but knows that it will take him a minute to actually get to that point. He says he was spending a lot of money on "weed" and being influenced by other people. He says he plans to let his mother manage his finances. The patients also says that before he was hiding his meds. He says he will make sure that his parents give him his meds and see him take them. The patient denies hallucinations of any kind. He thanks me for taking care of him and treating him well. The patient no longer meets criteria for inpatient. He can now be managed on an outpatient basis. The patient is to discharge in the care of his family. REVIEW OF SYSTEMS Constitutional: Negative for weight loss ENT: Negative for stridor Respiratory: Negative for cough or hemoptysis All other systems reviewed and are negative MENTAL STATUS General Appearance and Behavior: age appropriate, calm, cooperative, pleasant and polite Cooperation: cooperative Psychomotor Behavior: within normal limits Mood: much better Affect and affective range: Euthymic Thought Process: logical, goal directed Thought Content:: None Speech: Normal tone and pace Suicidal Ideation: Denies Homicidal Ideation: Denies Hallucinations: Denies Delusions: None elicited Impulse Control: Limited Insight and Judgment: Good Memory: Good Attention: Attentive Orientation: alert and oriented Assessment Bipolar Disorder RECOMMENDATIONS d/c 1013 Risperidone 1.5mg po BID Depakote DR 500mg po TID MEDICAL: Per primary team DELIRIUM PRECAUTIONS: Please re-orient patient frequently, keep lights on during the day, and minimize benzodiazepines and opiates as these medications could worsen patient's confusion. Disposition: Do not recommend acute psychiatric inpatient treatment. The patient understands that if SI/HI or any fear of endangerment arise he is to seek immediate assistance. The patient to be discharged with family The insolvency consultant to further discuss safety plan and give the patient all necessary resources He is to follow up with outpatient psych in 7 to 14 days upon discharge. Will sign off. Thanks. Case staffed with Dr. Flowers Mental Status Exam - Vital signs Last Vital Signs Temp 98.3 F 11/21/21 10:16 Pulse 92 H 11/21/21 10:16 Resp 16 11/21/21 10:16 BP 132/78 11/21/21 10:16 Pulse Ox 97 11/21/21 10:16
[2021-11-21 16:01] VITALS: BP 139/74
== END 2021-11-21 16:00 | disposition still patient (30) ==
LOC: ED 20:52 → EEVIPCON 20:52 → ED 11-21 16:00
DX: F98.9 Unspecified behavioral and emotional disorders with onset usually occurring in childhood and adolescence (principal); F12.90 Cannabis use, unspecified, uncomplicated; Z20.822 Contact with and (suspected) exposure to COVID-19; Z79.899 Other long term (current) drug therapy
CPT/HCPCS: 36415; 70450; 80053; 80307; 81001; 82962; 85025; 85027; 96372; 96374; 96376; 99285; J1200; J1630; J3360; J3486; U0003; 80320; 99284; G0480